=== PATIENT | female | born 1985 | race Caucasian/White ===

== ENCOUNTER 2023-12-31 11:43 | Emergency (ER) | payer OTHER ==
[~2023-12-31] VITALS: Ht 182.9 cm; Wt 110.0 kg
[2023-12-31 13:17] LABS: Urine Bacteria FEW /hpf (None Seen); Urine Blood 3+ /uL (Negative); Urine Budding Yeast OCCASIONAL /hpf (None Seen); Urine Clarity Clear (Clear); Urine Color Light-Brown (Yellow); Urine Protein, UAD 1+ (Negative); Urine Specific Gravity 1.004 (1.001-1.035); Urine Urobilinogen Normal (Negative); Urine WBC 1 /hpf (0 - 5); Urine pH 5.5 (5.0-9.0)
[2023-12-31] MEDS: SODIUM CHLORIDE 0.9% 1,000 ML IV ONE (13:22)
[2023-12-31] MEDS: ACETAMINOPHEN 650 mg PER 20.3 mL UD PO ONE (13:25)
[2023-12-31 14:00] VITALS: PULSE 75; RESP 16; O2SAT 99
[2023-12-31 16:09] VITALS: TEMP 98
[2023-12-31 16:45] VITALS: PULSE 59; RESP 14; O2SAT 99
[2023-12-31] MEDS: NS/OXYTOCIN 20UNITS 1,000 ML IV ONE (16:55)
[2023-12-31] MEDS: miSOPROStol 100 mcg TAB VG ONE (16:56)
[2023-12-31] MEDS: ONDANSETRON HCL 4 MG/2 ML VIAL IV ONE (19:15)
[2023-12-31] MEDS: MORPHINE SULFATE INJ 2 MG/ml SYRG IV ONE (19:16)
[2023-12-31 21:30] VITALS: BP 124/40; PULSE 60; RESP 14; O2SAT 96
[2024-01-01] MEDS ORDERED: miSOPROStol 50 MCG per PRE-CUT 1/2 TAB VG ONE (10:00)
== END 2023-12-31 21:40 | disposition home or self-care (01) ==
LOC: ER 11:43
DX: O20.8 Other hemorrhage in early pregnancy (principal); R10.2 Pelvic and perineal pain; O26.891 Other specified pregnancy related conditions, first trimester; Z3A.01 Less than 8 weeks gestation of pregnancy; Z98.890 Other specified postprocedural states
CPT/HCPCS: 36415; 76801; 76817; 81001; 84702; 96361; 96365; 96366; 96375; 99285; J2270; J2405; J7030